=== PATIENT | female | born 1955 | race Caucasian/White ===

== ENCOUNTER 2018-06-04 10:41 | Emergency (ER) | payer MEDICARE, MEDICAID ==
[2018-06-04 11:07] VITALS: BP 114/71
--- NOTE | 2018-06-04 11:26 | UC ---
Head Injury HPI - HPI Summary HPI Summary: The patient is a 63-year-old female who states she fell and hit her right face on the floor yesterday. She states she lost her balance because of a charley horse. She denies any headache nausea vomiting or visual problems. - History Of Current Complaint Chief Complaint: UCEye Stated Complaint: S/P FALL RIGHT EYE Time Seen by Provider: 06/04/18 11:08 Hx Obtained From: Patient Onset/Duration: Sudden Onset, Lasting Hours Severity Currently: None Severity Initially: Mild Pain Intensity: 0 Pain Scale Used: 0-10 Numeric Aggravating Factor(s): Nothing Alleviating Factor(s): Nothing Associated Signs And Symptoms: Negative: LOC (Time In Secs./Mins/Hrs), LOC Duration Unknown, Confusion, Memory Loss, Seizure, Epistaxis, Dental Malocclusion, Neck Pain, Nausea, Vomiting - Allergies/Home Medications Allergies/Adverse Reactions: Allergies Allergy/AdvReac Type Severity Reaction Status Date / Time No Known Allergies Allergy Verified 06/04/18 11:01 Home Medications: Home Medications Glimepiride 4 mg PO DAILY 06/04/18 [History Confirmed 06/04/18] Hydrochlorothiazide TAB* [Hydrodiuril TAB*] 25 mg PO DAILY 06/04/18 [History Confirmed 06/04/18] Lisinopril TAB* [Prinivil TAB*] 10 mg PO DAILY 06/04/18 [History Confirmed 06/04] Metoprolol Tartrate TAB* [Lopressor TAB*] 50 mg PO BID 06/04/18 [History Confirmed 06/04/18] Rosuvastatin Calcium 40 mg PO DAILY 06/04/18 [History Confirmed 06/04/18] metFORMIN* [Glucophage 500 MG TAB *] 1,000 mg PO DAILY 06/04/18 [History Confirmed 06/04/18] PMH/Surg Hx/FS Hx/Imm Hx Previously Healthy: Yes Endocrine History: Diabetes, Dyslipidemia Cardiovascular History: Hypertension - Surgical History Surgical History: None - Family History Known Family History: Positive: Hypertension, Diabetes - Social History Alcohol Use: None Substance Use Type: None Smoking Status (MU): Never Smoked Tobacco Review of Systems Constitutional: Negative Skin: Bruising Eyes: Negative ENT: Negative Respiratory: Negative Cardiovascular: Negative Gastrointestinal: Negative Genitourinary: Negative Motor: Negative Neurovascular: Negative Musculoskeletal: Negative Neurological: Negative Psychological: Negative Is Patient Immunocompromised?: No All Other Systems Reviewed And Are Negative: Yes Physical Exam Triage Information Reviewed: Yes Appearance: Well-Appearing, No Pain Distress, Well-Nourished Vital Signs: Initial Vital Signs Temp 98.1 F 06/04/18 10:58 Pulse 97 06/04/18 10:58 Resp 17 06/04/18 10:58 BP 114/71 06/04/18 10:58 Pulse Ox 100 06/04/18 10:58 Vital Signs Reviewed: Yes Eyes: Positive: Conjunctiva Clear, Other: - eomi/perrl, no hyphema, right upper and lower lids swollen and ecchymotic, no orbital rim pain or step offs ENT: Positive: Hearing grossly normal. Negative: Nasal congestion, Nasal drainage, Dental tenderness, Sinus tenderness, Uvula midline Neck: Positive: Supple, Nontender, No Lymphadenopathy Respiratory: Positive: Lungs clear, Normal breath sounds, No respiratory distress, No accessory muscle use Cardiovascular: Positive: RRR, No Murmur Musculoskeletal: Positive: ROM Intact, No Edema Neurological: Positive: Alert Psychological Exam: Normal Skin: Negative: rashes Head Injury Course/Dx - Differential Dx/Diagnosis Provider Diagnoses: right black eye Discharge - Sign-Out/Discharge Documenting (check all that apply): Patient Departure - Discharge Plan Condition: Stable Disposition: HOME Patient Education Materials: Black Eye (ED), Ice Pack Application (ED) Referrals: Radha Gill PA [Primary Care Provider] - 2 Weeks (if not better) - Billing Disposition and Condition Condition: STABLE Disposition: Home
== END 2018-06-04 11:26 | disposition home or self-care (01) ==
LOC: UCCORT 10:41
DX: S00.11XA Contusion of right eyelid and periocular area, initial encounter (principal); W19.XXXA Unspecified fall, initial encounter; Y93.9 Activity, unspecified; Y92.9 Unspecified place or not applicable; E11.9 Type 2 diabetes mellitus without complications; Z79.84 Long term (current) use of oral hypoglycemic drugs; I10 Essential (primary) hypertension; E78.5 Hyperlipidemia, unspecified
CPT/HCPCS: 99211; G0463

== ENCOUNTER 2018-06-08 16:04 | Emergency (ER) | payer MEDICARE, MEDICAID ==
[2018-06-08 16:20] VITALS: BP 84/54
--- NOTE | 2018-06-08 16:51 | RAD ---
INDICATION: Gait disturbance COMPARISON: None TECHNIQUE: Noncontrast axial source images were acquired from the skull base to the vertex. FINDINGS: Ventricles/sulci: The ventricles and cisterns are normal in size and configuration for age. Brain parenchyma: There is no focal parenchymal finding, evidence of intracranial mass, or intracranial mass effect. Intracranial hemorrhage:None. Extra-axial spaces: There are no abnormal extra axial fluid collections or evidence of extra-axial mass. Calvarium: There is no calvarial fracture or other calvarial abnormality. Scalp: There is no evidence of scalp or extracalvarial soft tissue abnormality. Paranasal sinuses/mastoid: The paranasal sinuses and mastoid air cells are clear. Other: None. IMPRESSION: NEGATIVE EXAMINATION
--- NOTE | 2018-06-08 17:16 | UC ---
Dizzy HPI HPI Summary: The patient is a 63-year-old female that was brought here for evaluation of being unsteady on her feet. She was seen here on 06/04 after a fall. The fall that resulted in a black eye. The patient is a diabetic. She denies any headache. She denies any chest pain or shortness of breath. Today she required 2 people to help her get her out of the collar and bring her into the [facility]. - History Of Current Complaint Chief Complaint: UCDizziness Stated Complaint: UNSTEADY Time Seen by Provider: 06/08/18 16:05 Hx Obtained From: Patient, Family/Plater Apprentice Onset/Duration: Gradual Onset, Lasting Hours Timing: Constant Severity Initially: Moderate Severity Currently: Moderate Pain Intensity: 0 Character: Lightheaded, Dizzy Aggravating Factor(s): Position Change Alleviating Factor(s): Nothing Associated Signs And Symptoms: Positive: Unsteady Gait. Negative: Nausea, Vomiting, Diaphoresis, Tinnitus, Chest Pain, SOB, Palpitations, Visual Changes, Decreased Oral Intake, Change In Diet, OTC Medications - Allergies/Home Medications Allergies/Adverse Reactions: Allergies Allergy/AdvReac Type Severity Reaction Status Date / Time No Known Allergies Allergy Verified 06/04/18 11:01 PMH/Surg Hx/FS Hx/Imm Hx Endocrine History: Diabetes - Surgical History Surgical History: None - Family History Known Family History: Positive: Hypertension, Diabetes - Social History Alcohol Use: None Substance Use Type: None Smoking Status (MU): Never Smoked Tobacco Review of Systems Constitutional: Negative Skin: Bruising Eyes: Negative ENT: Negative Respiratory: Negative Cardiovascular: Negative Gastrointestinal: Negative Genitourinary: Negative Motor: Negative Neurovascular: Negative Musculoskeletal: Negative Neurological: Weakness Psychological: Negative All Other Systems Reviewed And Are Negative: Yes Physical Exam Triage Information Reviewed: Yes Appearance: Well-Appearing, No Pain Distress, Well-Nourished Vital Signs: Initial Vital Signs Temp 98.1 F 06/08/18 16:10 Pulse 95 06/08/18 16:10 Resp 17 06/08/18 16:10 BP 84/54 06/08/18 16:10 Pulse Ox 99 06/08/18 16:10 Vital Signs Reviewed: Yes Eyes: Positive: Conjunctiva Clear, Other: - right black eye ENT: Positive: Hearing grossly normal. Negative: Muffled voice, Hoarse voice Neck: Positive: Supple, Nontender, No Lymphadenopathy Respiratory: Positive: Lungs clear, Normal breath sounds, No respiratory distress Cardiovascular: Positive: RRR, No Murmur Musculoskeletal: Positive: Strength Intact, Other: - unsteady while standing no focal neurologic exam Neurological: Positive: Alert Psychological: Positive: Normal Response To Family - flat Diagnostics - Radiology No standard instances Xray Interpretation: No Acute Changes - CT of brain Radiology Interpretation Completed By: Radiologist - EKG Cardiac Rate: NL Ectopy: None ST Segment: Normal Dizzy Course/Dx - Course Course Of Treatment: glucometer was dropped/multiple single digit readings and on in the 20's. d/w Dr. De La Vega. to [facility] ED via EMS. EMS checked finger stick -<20... one AMP D50 given by them prior to Transfer - Differential Dx/Diagnosis Provider Diagnoses: hypotension. hypoglycemia Discharge - Sign-Out/Discharge Documenting (check all that apply): Patient Departure - Discharge Plan Condition: Guarded Disposition: TRANS HIGHER LVL OF CARE FAC Referrals: Radha Gill PA [Primary Care Provider] - - Billing Disposition and Condition Condition: GUARDED Disposition: Trans Higher Lvl of Care Fac
[2018-06-08] MEDS ORDERED: NS 0.9% 1000 ML* 1,000 ML BOLUS ONE (17:21)
== END 2018-06-08 17:45 | disposition short-term general hospital (02) ==
LOC: UCCORT 16:04
DX: I95.9 Hypotension, unspecified (principal); E11.649 Type 2 diabetes mellitus with hypoglycemia without coma
CPT/HCPCS: 70450; 93005; 96360; 99213; G0463